=== PATIENT | male | born 1990 | race Caucasian/White ===

== ENCOUNTER 2024-01-07 09:43 | Inpatient (IN) | payer OTHER ==
[~2024-01-07] VITALS: Ht 177.8 cm; Wt 141.4 kg
[2024-01-07 10:55] LABS: Chloride 107 mmol/L (98-107); Potassium 3.9 mmol/L (3.5-5.1); Sodium 137 mmol/L (136-145)
[2024-01-07 10:56] LABS: Anion Gap 4 (5-15); Calcium 9.3 mg/dL (8.5-10.1); Carbon Dioxide 26 mmol/L (20-30)
[2024-01-07 10:57] LABS: Basophils # (auto) 0 10 ^3/uL (0-0.2); Basophils % (auto) 0.2 % (0.0-2.0); Eosinophils # (auto) 0 10 ^3/uL (0-0.8); Eosinophils % (auto) 0.4 % (0.0-7.0); Hematocrit 48.2 % (41.0-53.0); Hemoglobin 16.5 g/dL (13.5-17.5); Lymphocytes # (auto) 0.7 10 ^3/uL (0.4-5.4); Lymphocytes % (auto) 5.6 % (10.0-50.0); Mean Corpuscular Hemoglobin 29.1 pg (28.0-32.0); Mean Corpuscular Hgb Conc. 34.2 g/dL (32.0-36.0); Mean Corpuscular Volume 84.9 fL (80.0-100.0); Monocytes % (auto) 8.1 % (0.0-12.0); Neutrophils # (auto) 10.8 10 ^3/uL (1.6-8.6); Neutrophils % (auto) 85.7 % (37.0-80.0); Nucleated Red Blood Cells % 0.2 %; Red Blood Cells 5.69 10^6/uL (4.5-5.90); Red Cell Distribution Width 13.5 % (11.8-14.3); White Blood Cell 12.6 10^3/uL (4.4-10.8)
[2024-01-07 11:01] LABS: BUN/Creatinine Ratio 11.3 (10.0-20.0); Blood Urea Nitrogen 11 mg/dL (9-23); Glucose 147 mg/dL (74-106)
[2024-01-07 11:28] LABS: INR 1.18 (0.9-1.15); Partial Thromboplastin Time 29.6 SEC (24.5-34.5); Prothrombin Time 12.4 sec (9.3-11.8)
[2024-01-07 11:56] LABS: Urine Bacteria None Seen /hpf (None Seen)
[2024-01-07 12:05] LABS: Urine Blood Negative /uL (Negative); Urine Clarity Clear (Clear); Urine Color Yellow (Yellow); Urine Mucus FEW (None Seen); Urine Protein, UAD TRACE (Negative); Urine Specific Gravity 1.048 (1.001-1.035); Urine Urobilinogen Normal (Negative); Urine WBC 1 /hpf (0 - 3); Urine pH 5.5 (5.0-9.0)
[2024-01-07] MEDS: SODIUM CHLORIDE 0.9% 1,000 ML IVB ONE (12:34)
[2024-01-07] MEDS: IOHEXOL 300 MG/ML 100ML BOTTLE IJ ONE (12:41)
[2024-01-07] MEDS: ONDANSETRON HCL 4 MG/2 ML VIAL IV ONE (12:43)
[2024-01-07] MEDS: MORPHINE SULFATE 4 MG/ML SYR/VIAL IV ONE (12:44)
[2024-01-07] MEDS ORDERED: DOCUSATE SOD 100 MG CAP PO PRN (13:30)
[2024-01-07] MEDS ORDERED: PIPERACILLIN-TAZOB 3.375GM 100 ML IV ONE (13:30)
[2024-01-07] MEDS ORDERED: MORPHINE SULFATE INJ 2 MG/ml SYRG IV PRN (13:30)
[2024-01-07] MEDS ORDERED: ONDANSETRON HCL 4 MG/2 ML VIAL IV PRN (13:30)
[2024-01-07] MEDS: ACETAMINOPHEN 500 MG TAB PO ONE (17:08)
[2024-01-07] MEDS: PIPERACILLIN-TAZOB 3.375GM 100 ML IV SCH (17:45)
[2024-01-07] MEDS: SODIUM CHLORIDE 0.9% 1,000 ML IV SCH (17:46)
[2024-01-07 18:10] VITALS: O2SAT 96
[2024-01-07 21:00] VITALS: BP 122/64; PULSE 94; RESP 18; TEMP 98.2; O2SAT 92
[2024-01-07 22:50] VITALS: TEMP 103
[2024-01-07] MEDS: ACETAMINOPHEN 325 MG TAB PO PRN (23:13)
[2024-01-08 05:00] VITALS: BP 129/75; PULSE 114; RESP 20; TEMP 97.7; O2SAT 92
[2024-01-08 06:29] LABS: Basophils # (auto) 0 10 ^3/uL (0-0.2); Basophils % (auto) 0.3 % (0.0-2.0); Eosinophils # (auto) 0 10 ^3/uL (0-0.8); Hematocrit 45.6 % (41.0-53.0); Hemoglobin 15.7 g/dL (13.5-17.5); Lymphocytes # (auto) 0.6 10 ^3/uL (0.4-5.4); Lymphocytes % (auto) 6.6 % (10.0-50.0); Mean Corpuscular Hemoglobin 29.5 pg (28.0-32.0); Mean Corpuscular Hgb Conc. 34.3 g/dL (32.0-36.0); Monocytes # (auto) 0.8 10 ^3/uL (0-1.3); Monocytes % (auto) 9.3 % (0.0-12.0); Neutrophils # (auto) 7.1 10 ^3/uL (1.6-8.6); Neutrophils % (auto) 83.8 % (37.0-80.0); Nucleated Red Blood Cells % 0.2 %; Red Cell Distribution Width 13.2 % (11.8-14.3); White Blood Cell 8.5 10^3/uL (4.4-10.8)
[2024-01-08 06:33] LABS: Alanine Aminotransferase 31 U/L (7-40); Alkaline Phosphatase 58 U/L (46-116); Anion Gap 4 (5-15); Aspartate Aminotransferase 17 U/L (13-40); BUN/Creatinine Ratio 7.3 (10.0-20.0); Bilirubin, Total 0.8 mg/dL (0.2-1.0); Blood Urea Nitrogen 8 mg/dL (9-23); Carbon Dioxide 27 mmol/L (20-30); Chloride 106 mmol/L (98-107); Glucose 111 mg/dL (74-106); Potassium 3.7 mmol/L (3.5-5.1); Sodium 137 mmol/L (136-145)
[2024-01-08 06:34] LABS: Total Protein 6.5 g/dL (5.7-8.2)
[2024-01-08 08:00] VITALS: PULSE 97; RESP 18; O2SAT 95
[2024-01-08 08:10] VITALS: BP 117/66; PULSE 97; RESP 18; TEMP 99.9; O2SAT 95
[2024-01-08 12:10] VITALS: BP 124/76; PULSE 96; RESP 20; TEMP 100.7; O2SAT 96
[2024-01-08 16:10] VITALS: BP 105/64; PULSE 80; RESP 18; TEMP 98.4; O2SAT 96
[2024-01-08 21:00] VITALS: BP 108/62; PULSE 68; RESP 18; TEMP 99; O2SAT 96
[2024-01-09 01:00] VITALS: BP 122/68; PULSE 78; RESP 17; TEMP 98.2; O2SAT 96
[2024-01-09 05:00] VITALS: BP 107/64; PULSE 73; RESP 18; TEMP 98.1; O2SAT 97
[2024-01-09 06:51] LABS: Albumin 3.9 g/dL (3.2-4.8); Alkaline Phosphatase 55 U/L (46-116); Anion Gap 9 (5-15); Aspartate Aminotransferase 24 U/L (13-40); BUN/Creatinine Ratio 6.9 (10.0-20.0); Bilirubin, Total 0.6 mg/dL (0.2-1.0); Blood Urea Nitrogen 7 mg/dL (9-23); Calcium 9.1 mg/dL (8.7-10.4); Carbon Dioxide 27 mmol/L (20-30); Chloride 105 mmol/L (98-107); Glucose 91 mg/dL (74-106); Potassium 3.7 mmol/L (3.5-5.1); Sodium 141 mmol/L (136-145); Total Protein 6.4 g/dL (5.7-8.2)
[2024-01-09 06:58] LABS: Basophils # (auto) 0 10 ^3/uL (0-0.2); Basophils % (auto) 0.7 % (0.0-2.0); Eosinophils # (auto) 0.2 10 ^3/uL (0-0.8); Eosinophils % (auto) 2.7 % (0.0-7.0); Hematocrit 44.9 % (41.0-53.0); Hemoglobin 15.6 g/dL (13.5-17.5); Lymphocytes # (auto) 1.1 10 ^3/uL (0.4-5.4); Lymphocytes % (auto) 15.3 % (10.0-50.0); Mean Corpuscular Hgb Conc. 34.8 g/dL (32.0-36.0); Mean Corpuscular Volume 86.2 fL (80.0-100.0); Monocytes # (auto) 0.9 10 ^3/uL (0-1.3); Monocytes % (auto) 11.7 % (0.0-12.0); Neutrophils # (auto) 5.1 10 ^3/uL (1.6-8.6); Neutrophils % (auto) 69.6 % (37.0-80.0); Nucleated Red Blood Cells % 0.2 %; Red Blood Cells 5.21 10^6/uL (4.5-5.90); White Blood Cell 7.3 10^3/uL (4.4-10.8)
[2024-01-09 07:21] LABS: Alanine Aminotransferase 38 U/L (7-40)
[2024-01-09 08:00] VITALS: BP 124/61; PULSE 80; RESP 20; TEMP 98.7; O2SAT 97
[2024-01-09 12:00] VITALS: BP 138/75; PULSE 65; RESP 20; TEMP 97.9; O2SAT 95
[2024-01-09 16:00] VITALS: BP 150/86; PULSE 73; RESP 18; TEMP 98.3; O2SAT 97
[2024-01-09 21:00] VITALS: BP 118/75; PULSE 97; RESP 19; TEMP 97.7; O2SAT 97
[2024-01-10 01:00] VITALS: BP 121/65; PULSE 67; RESP 19; TEMP 98.1; O2SAT 97
[2024-01-10 05:00] VITALS: BP 113/73; PULSE 58; RESP 19; TEMP 98; O2SAT 100
[2024-01-10 09:00] VITALS: BP 113/60; PULSE 65; RESP 18; TEMP 97.9; O2SAT 97
[2024-01-10 13:00] VITALS: BP 124/75; PULSE 76; RESP 18; TEMP 97.7; O2SAT 97
[2024-01-10 17:00] VITALS: BP 112/74; PULSE 79; RESP 16; TEMP 97.5; O2SAT 96
[2024-01-10 21:00] VITALS: BP 117/67; PULSE 90; RESP 18; TEMP 98.8; O2SAT 97
[2024-01-11 01:00] VITALS: BP 106/51; PULSE 70; RESP 18; TEMP 98.3; O2SAT 95
[2024-01-11 05:00] VITALS: BP 132/81; PULSE 90; RESP 19; TEMP 98.1; O2SAT 97
[2024-01-11 08:40] VITALS: BP 118/73; PULSE 76; RESP 6; TEMP 98; O2SAT 98
[2024-01-11] MEDS ORDERED: METR-344 PO (12:19)
[2024-01-11] MEDS ORDERED: LEVO500T91 PO (12:19)
[2024-01-11 12:39] VITALS: TEMP 36.7
[2024-01-11 12:43] VITALS: BP 138/84; PULSE 81; RESP 18; TEMP 98; O2SAT 98
== END 2024-01-11 14:01 | disposition home or self-care (01) | DRG 872 ==
LOC: ER 09:43 → OVERFLOW 14:30 → WEST WING 17:21
PROVIDERS: ADMIT Nurse Practitioner Family; ATTEND Family Medicine
DX: A41.9 Sepsis, unspecified organism (principal); K57.20 Diverticulitis of large intestine with perforation and abscess without bleeding; E86.0 Dehydration; K43.9 Ventral hernia without obstruction or gangrene; Z80.9 Family history of malignant neoplasm, unspecified
CPT/HCPCS: 36415; 74177; 80048; 80053; 81001; 85025; 85610; 85730; 96374; 96375; G0378; J2405; J2543